=== PATIENT | male | born 1965 | race African-American/Black ===

== ENCOUNTER 2022-01-09 12:58 | Emergency (ER) | payer OTHER ==
[~2022-01-09] VITALS: Ht 177.8 cm; Wt 113.6 kg
[2022-01-09 13:15] VITALS: BP 119/74
[2022-01-09] MEDS ORDERED: HYDROcodone/APAP 5/325MG 1 TAB TABLET PO ONE (13:15)
--- NOTE | 2022-01-09 13:33 | PHYS DOC ---
Past History Additional Past Medical Histor: neuropathy associated w/ dm2 Past Surgical History: Other Additional Past Surgical Histo: gynocomastia sx Alcohol Use: None General Adult EDM: Chief Complaint: LOWEREXTREMITY INJURY HPI: HPI: Patient is a 56-year-old male who presents to the emergency department for left lateral ankle pain that occurred after he was walking down steps and twisted his ankle. Patient rates his pain 10 out of 10. He denies any treatment prior to arrival. He reports at rest it is 3 out of 10. Worse with movement and bearing weight. He reports that he did not hit his head or lose consciousness after the fall. He reports that he is unable to bear weight or ambulate on his ankle. He denies any decreased sensation but reports decreased range of motion due to pain. He has a history of diabetic neuropathy but reports that he has not had increased neuropathic symptoms following fall. Review of Systems: Review of Systems: HENT: See HPI Musculoskeletal: See HPI Integument: See HPI Neurologic: See HPI Current Medications: Current Meds: Current Medications Medications (Trade) Dose Ordered Sig/Johnny Start Time Stop Time Status Last Admin Dose Admin Acetaminophen/ Hydrocodone Bitart (Lortab 5/325) 1 tab 1X ONCE 01/09/22 13:15 01/09/22 13:18 DC Allergies: Allergies: Allergies Coded Allergies Type Severity Reaction Last Updated Verified No Known Drug Allergies 01/09/22 No Physical Exam: PE: Constitutional: Well developed, well nourished, no acute distress, non-toxic appearance. [] HENT: Normocephalic, atraumatic, bilateral external ears normal, oropharynx moist, no oral exudates, nose normal. [] Eyes: PERRL, EOMI, conjunctiva normal, no discharge. [] Neck: Normal range of motion, no stridor Cardiovascular: Normal peripheral perfusion Lungs & Thorax: No work of breathing, no tachypnea Abdomen: Obese and soft Skin: Warm, dry, no erythema, no rash. [] Back: No tenderness, normal range of motion Extremities: No tenderness, no cyanosis, no clubbing, ROM intact, no edema. [] Left ankle: Swelling and pain noted to lateral left ankle, no obvious deformity, decreased range of motion due to pain, neuro intact, no open wounds Neurologic: Alert and oriented X 3, normal motor function, normal sensory function, no focal deficits noted. [] Psychologic: Affect normal, judgement normal, mood normal. [] Current Patient Data: Vital Signs: Vital Signs Date Time Temp Pulse Resp B/P (MAP) Pulse Ox O2 Delivery O2 Flow Rate FiO2 01/09/22 13:15 105 18 119/74 (89) 95 EKG: EKG: [] Radiology/Procedures: Radiology/Procedures: []PROCEDURE: ANKLE LEFT 3V EXAMINATION: XR EXAM OF ANKLE_LEFT 3V. HISTORY: 56 years Male Reason: ANKLE PAIN TWISTED SUNDAY / . Instructions: / History: . COMPARISON: None. FINDINGS: There is a nondisplaced transverse fracture involving the distal fibula just below the jointline. The distal tibia demonstrate no fracture. The ankle joint has normal configuration with no subluxation or dislocation. Calcaneal spurs are seen. No arthritic changes noted. IMPRESSION: Nondisplaced transverse distal fibular fracture. Electronically signed by: Mila Friend MD (01/09/2022 1:56 PM) [id number] DICTATED AND SIGNED BY: MILA FRIEND MD DATE: 01/09/22 1354 CC: SHASHANK QUINONES APRN; PCP,NO ~ Heart Score: C/O Chest Pain: N/A Risk Factors: Risk Factors: DM, Current or recent (<one month) smoker, HTN, HLP, family history of CAD, obesity. Risk Scores: Score 0 - 3: 2.5% MACE over next 6 weeks - Discharge Home Score 4 - 6: 20.3% MACE over next 6 weeks - Admit for Clinical Observation Score 7 - 10: 72.7% MACE over next 6 weeks - Early Invasive Strategies Course & Med Decision Making: Course & Med Decision Making Pertinent Labs and Imaging studies reviewed. (See chart for details) [] Patient presents to the emergency department for left lateral ankle pain following twisting it. Imaging was performed and patient's pain was treated. Imaging performed shows nondisplaced distal fibular fracture. Patient's ankle was placed in a Ortho scratch glass splint and he was given crutches and crutch training. He is neurovascularly intact pre and post placement. He is advised to apply ice and use elevation to help with swelling. Ibuprofen or naproxen for mild pain he will be discharged home with pain medication. He was given orthopedic follow-up. I discussed with patient all findings and diagnostic testing as well as the need to follow-up with PCP for further evaluation and treatment or return to the ER if any new or worsening symptoms. Strict return precautions were also discussed at length. Patient voiced understanding and agreement with the plan. Patient is hemodynamically stable at the time of disposition. Dragon Disclaimer: Dragon Disclaimer: This electronic medical record was generated, in whole or in part, using a voice recognition dictation system. Departure Departure: Impression: Primary Impression: Left fibular fracture Qualified Codes: S82.832A - Other fracture of upper and lower end of left fibula, initial encounter for closed fracture Disposition: HOME / SELF CARE / HOMELESS Condition: GOOD Referrals: PCP,JAMAAL (PCP) YUSRA VIDALES II, MD Patient Instructions: Crutch Use, Fibular Fracture, Adult, Treated Without Immobilization Additional Instructions: Please see attached physician for orthopedic follow-up. Were seen in the ER today for a fracture or broken bone. You had a splint placed to help with pain and healing. You will need to follow-up with the orthopedic doctors in the orthopedic clinic as soon as possible-call tomorrow.Use crutches as directed so you dont bear weight. Please see attached information regarding follow-up physician. You should perform range of motion exercises to prevent stiffness of your joints. Splints help with the pain and can promote healing but immobility can cause chronic pain over time. Please refer to these attached instructions regarding range of motion exercises. Keep the splint clean and dry avoid getting it wet. If the splint gets wet you will need to have it replaced. You should use ice and elevation to help with the swelling and pain. For the first 24 hours apply ice 20 minutes on 20 minutes off 4 times per day. Ensure that ice is in a plastic bag as to not get the splint wet. You may take NSAID medications (ibuprofen, naproxen) to help with the pain. You are being discharged home with pain medication. This medication is hydrocodone and Tylenol in combination tablet. Do not take any additional Tylenol with this medication. This medication may cause sedation so do not take need to be alert, driving a vehicle or with alcohol. Please return to the emergency department if you develop any of the following symptoms: Increasing pain that does not improve with treatments. New numbness or tingling Warmth, redness, skin discoloration, skin breakdown, drainage from under splint or near splinted area. Increasing inability to move your extremity or digits. Foul odor coming from splint Fevers or chills Nausea or vomiting Persistent lightheadedness We would be happy to see you for any other concerning symptoms regarding your splinted extremity. Scripts Hydrocodone Bit/Acetaminophen (HYDROCODONE-APAP 5-325 ) 1 Each Tablet 1 TAB PO PRN Q6HRS PRN for PAIN for 2 Days, #8 TAB 0 Refills Prov: SHASHANK QUINONES APRN 01/09/22 SHASHANK QUINONES APRN Jan 09, 2022 13:33
--- NOTE | 2022-01-09 13:58 | RAD ---
EXAMINATION: XR EXAM OF ANKLE_LEFT 3V. HISTORY: 56 years Male Reason: ANKLE PAIN TWISTED SUNDAY / Spl. Instructions: / History: . COMPARISON: None. FINDINGS: There is a nondisplaced transverse fracture involving the distal fibula just below the jointline. The distal tibia demonstrate no fracture. The ankle joint has normal configuration with no subluxation o r dislocation. Calcaneal spurs are seen. No arthritic changes noted. IMPRESSION: Nondisplaced transverse distal fibular fracture. Electronically signed by: Malcolm Friend MD (01/09/2022 1:56 PM) [id number]
[2022-01-09] MEDS ORDERED: HYDR-2155 PO (14:06)
== END 2022-01-09 14:28 | disposition home or self-care (01) ==
LOC: ER 12:58
DX: S82.832A Other fracture of upper and lower end of left fibula, initial encounter for closed fracture (principal); E11.40 Type 2 diabetes mellitus with diabetic neuropathy, unspecified; X50.9XXA Other and unspecified overexertion or strenuous movements or postures, initial encounter; Y93.01 Activity, walking, marching and hiking; Y92.89 Other specified places as the place of occurrence of the external cause; Y99.8 Other external cause status
CPT/HCPCS: 29515; 73610; 99283

== ENCOUNTER → 2022-01-12 | Outpatient (CLI) | payer OTHER ==
[2022-01-09 13:15] VITALS: BP 119/74
[~2022-01-12] MED LIST: HYDR-2155 PO
--- NOTE | 2022-01-12 14:50 | RAD ---
XR LT TIBIA + FIBULA 01/11/2022 Reason: WEIGHT BEARING, FX Comparison: Ankle radiograph 10/11/2021 Technique: 2 views of the tibia and fibula. Findings: Overlying casting material limits evaluation of nondisplaced distal fibular fracture. The ankle morti se appears congruent. No additional fractures of the tibia or fibula. Tibiofemoral joint is normal. Impression: Weightbearing views without distraction of the ankle mortise or proximal fibular fracture. Electronically signed by: Maverick Jha MD (01/12/2022 2:47 PM) [id number]
== END ==
LOC: RAD 09:42
PROVIDERS: ATTEND Orthopaedic Surgery Sports Medicine
DX: S82.822A Torus fracture of lower end of left fibula, initial encounter for closed fracture (principal); X58.XXXA Exposure to other specified factors, initial encounter; Y93.89 Activity, other specified; Y92.89 Other specified places as the place of occurrence of the external cause; Y99.8 Other external cause status
CPT/HCPCS: 73590